=== PATIENT | male | born 1960 | race Caucasian/White ===

== ENCOUNTER 2022-11-12 10:29 | Inpatient (IN) | payer OTHER, SELFPAY ==
[2022-11-12] VITALS (11 sets, daily range): BP systolic 121–148; BP diastolic 60–81; PULSE 61–72; RESP 14–17; TEMP 36.9–37.5; O2SAT 97–100
--- NOTE | 2022-11-12 10:41 | DI.RAD.S_ITS ---
PROCEDURE: XR HIP W PEL IF DONE RT 2V INDICATIONS: fall with hip injury,short/rotated. TECHNIQUE: 2 views of the hip were acquired. COMPARISON: None. FINDINGS: Bones: Impacted subcapital hip fracture. Soft tissues: Partially seen lower lumbar spondylosis. Moderate stool burden. IMPRESSION: Right hip fracture. Dictated by: Marcelino Medina M.D. on 11/12/2022 at 11:23 Approved by: Marcelino Medina M.D. on 11/12/2022 at 11:24
--- NOTE | 2022-11-12 11:25 | ED.FALL ---
HPI - Fall General Chief Complaint: Fall Stated Complaint: fall, R hip short rotated Time Seen by Provider: 11/12/22 10:54 Source: patient Mode of arrival: EMS Limitations: no limitations History of Present Illness HPI Narrative: Patient is a 62-year-old male who is here for evaluation of injuries that he sustained when he states he was at his normal state of health and he slipped on a cement floor landing on his right hip. He is not been ambulatory since then. Did not hit his head. No other injuries from the event. No prior right hip injuries. No interventions prior to arrival. Related Data Home Medications Medication Instructions Recorded Confirmed No Known Home Medications 11/12/22 11/12/22 Review of Systems Musculoskeletal Musculoskeletal: Reports system reviewed and no additional complaints, except as documented Integumentary/Breasts Skin/Breast: Reports system reviewed and no additional complaints, except as documented Neurologic Neurologic: Reports system reviewed and no additional complaints, except as documented Exam Initial Vital Signs Initial Vital Signs: Vital Signs Temperature 98.5 F 11/12/22 10:35 Pulse Rate 61 11/12/22 10:35 Respiratory Rate 16 11/12/22 10:35 Blood Pressure 148/60 H 11/12/22 10:35 Pulse Oximetry 97 11/12/22 10:35 Oxygen Delivery Method Room Air 11/12/22 10:35 Const General: cooperative and No ill appearing HENMT Head: normal to inspection and normocephalic Cardio Pulses: dorsalis pedis present on the right Neuro Sensory Exam: no sensory deficits noted Extrem Other: Discomfort with palpation in the right hemipelvis with a shortened right leg. Course Orders Ordered: ED Orders 11/12/22 10:40 COVID19 -Nasal RAPID Stat 11/12/22 10:41 XR hip w pel if done RT 2V Stat 11/12/22 11:26 Consult to Orthopedic Surgery Stat 11/12/22 11:44 Basic Metabolic Panel Stat Complete Blood Count AUTO DIFF Stat Sodium Chloride (Normal Saline 0.9%) 1,000 mls @ 100 mls/hr IV CONT RIGOBERTO Last Admin: 11/12/22 11:53 Dose: 100 mls/hr Documented By: RONNIE Vital Signs Vital signs: Vital Signs - 8 hr 11/12/22 10:35 11/12/22 10:39 11/12/22 10:40 Temperature 98.5 F Pulse Rate 61 Respiratory Rate 16 Blood Pressure 148/60 H 148/80 H Pulse Oximetry 97 100 Oxygen Delivery Method Room Air 11/12/22 10:40 11/12/22 11:00 11/12/22 11:00 Temperature Pulse Rate 63 72 Respiratory Rate Blood Pressure 123/80 Pulse Oximetry 99 98 Oxygen Delivery Method MDM - Fall Lab Data 11/12/22 11:44 11/12/22 11:44 Labs: Lab Results 11/12/22 11/12/22 11/12/22 Range/Units 10:40 11:44 11:44 WBC 9.9 (4.5-11.0) X10^3/uL RBC 4.24 L (4.5-5.9) X10^6/uL Hgb 12.8 L (13.5-17.5) g/dL Hct 38.2 L (41-53) % MCV 90.0 (80-100) fL MCH 30.3 (26-34) PG MCHC 33.6 (30-36) % RDW 15.0 H (11.6-14.8) % Plt Count 319 (150-400) X10^3/uL Neut % (Auto) 74.9 (50-75) % Lymph % (Auto) 14.7 L (25-40) % [place] % (Auto) 8.7 (3-14) % Eos % (Auto) 0.5 L (2-4) % Baso % (Auto) 1.2 (0-2) % Neut # (Auto) 7500 H (2399-9704) /uL Lymph # (Auto) 1500 (2054-3689) /uL [place] # (Auto) 900 (0-900) /uL Eos # (Auto) 0 (0-450) /uL Baso # (Auto) 100 (0-100) /uL Sodium 133 L (137-145) mmol/L Potassium 4.6 (3.4-5.1) mmol/L Chloride 100 (98-107) mmol/L Carbon Dioxide 27 (22-32) mmol/L BUN 10 (9-20) mg/dL Creatinine 0.68 (0.66-1.25) mg/dL Estimated GFR > 60 (>60) mL/min BUN/Creatinine Ratio 14.7 (6-22) Glucose 96 (80-110) mg/dL Calcium 8.7 (8.4-10.2) mg/dL SARS-CoV-2 (PCR) Negative (Negative) Urine Dip Bedside Urine Glucose Negative Bedside Urine Bilirubin - Negative Bedside Urine Ketone - Negative Urine Specific [place] 1.005 Bedside Urine Occult Blood - Negative Bedside Urine pH 8.0 Bedside Urine Protein - Negative Bedside Urine Urobilinogen - Negative Bedside Urine Nitrite - Negative Bedside Urine Leukocytes - Negative Esterase Imaging Data Extremity x-ray #1: Radiologist's Impression: PROCEDURE:? XR HIP W PEL IF DONE RT 2V ? INDICATIONS:? fall with hip injury,short/rotated. ? TECHNIQUE:? 2 views of the hip were acquired.? ? COMPARISON:? None. ? FINDINGS:? ? Bones:? Impacted subcapital hip fracture. ? Soft tissues:? Partially seen lower lumbar spondylosis.? Moderate stool burden. ? IMPRESSION:? Right hip fracture. MDM Narrative Medical decision making narrative: This was a mechanical fall at an isolated right femoral neck fracture. Discussed the case with Dr. Arzola with Orthopedics who asked with the patient be admitted to the medicine service and he would look at the x-rays and evaluate the patient upon admission. Then discussed the case with Dr. Puga who will admit the patient. I did discuss the findings of the x-ray with the patient. He expressed understanding and agreement with plan. Discharge Plan Departure Patient Disposition: Admitted As Inpatient Clinical Impression: Closed fracture of neck of right femur
[2022-11-12 11:50] LABS: COVID19 -Nasal RAPID Negative (Negative)
[2022-11-12] MEDS: SODIUM CHLORIDE 0.9% 1,000 ML 100 ML IV (11:53)
[2022-11-12 11:56] LABS: Add Manual Diff / Slide Review NO; Basophils Absolute Auto 100 /uL (0-100); Basophils Percent Auto 1.2 % (0-2); Eosinophils Absolute Auto 0 /uL (0-450); Eosinophils Percent Auto 0.5 % (2-4); Hematocrit 38.2 % (41-53); Hemoglobin 12.8 g/dL (13.5-17.5); Lymphocytes Absolute Auto 1500 /uL (1100-4500); Lymphocytes Percent Auto 14.7 % (25-40); Mean Corpuscular HGB Conc 33.6 % (30-36); Mean Corpuscular Hemoglobin 30.3 PG (26-34); Monocytes Absolute Auto 900 /uL (0-900); Monocytes Percent Auto 8.7 % (3-14); Neutrophils Absolute Auto 7500 /uL (1500-7000); Neutrophils Percent Auto 74.9 % (50-75); Platelet Count 319 X10^3/uL (150-400); Red Blood Cell Count 4.24 X10^6/uL (4.5-5.9); White Blood Cell Count 9.9 X10^3/uL (4.5-11.0)
[2022-11-12 12:02] LABS: BUN Creatinine Ratio 14.7 (6-22); Blood Urea Nitrogen 10 mg/dL (9-20); Calcium 8.7 mg/dL (8.4-10.2); Carbon Dioxide 27 mmol/L (22-32); Chloride 100 mmol/L (98-107); Estimated Glomerular Filt Rate > 60 mL/min (>60); Glucose 96 mg/dL (80-110); HEMOLYSIS < 15 (0-50); Potassium 4.6 mmol/L (3.4-5.1); Sodium 133 mmol/L (137-145)
--- NOTE | 2022-11-12 14:27 | PM.HP.1 ---
History of Present Illness History of Present Illness Date Patient Seen: 11/12/22 Time Patient Seen: 14:27 Chief complaint: fall, R hip short rotated Narrative: This is a 62 year old male, former smoker, daily drinker of 4-5 beers and daily marijuana use who presented with constant right hip pain after a fall at home today. Patient denies dizziness, loss of consciousness, palpitations, chest pain prior to fall. He denies recent shortness of breath, leg swelling, abdominal pain, dysuria, constipation or diarrhea. He has not seen a doctor in about 5 years. He thinks he may have slipped on water on his floor which is what led to his fall. He denies prior withdrawal symptoms when he has stopped drinking in the past. In the emergency room, imaging showed a right femoral neck fracture. Orthopedic surgery was contacted via the emergency room, admitted to medicine for continued management. Laboratory evaluation was only notable for a sodium of 133, and was otherwise unremarkable. Patient History Medical History (Updated 11/12/22 @ 14:27 by Carlos Manuel Puga DO) No pertinent past medical history Surgical History (Updated 11/12/22 @ 14:27 by Carlos Manuel Puga DO) H/O knee surgery Family & Social History Family History Mother Cancer Father Cancer Safety & Behavioral: Feels Safe in Current Yes Environment Been Physically Hurt or No Threatened By a Person Tobacco & Substance use: Tobacco: former (60 + pack year hx), stopped about 12 years ago EtOH: daily EtOH, 4-5 drinks per day, no prior history of withdrawals Marijuana: daily Illicit substances: Denies Meds Home Medications and Allergies Home Medications Medication Instructions Recorded Confirmed Type No Known Home Medications 11/12/22 11/12/22 History Allergies Allergy/AdvReac Type Severity Reaction Status Date / Time No Known Drug Allergies Allergy Verified 11/12/22 14:53 Review of Systems Review of Systems Narrative: All other systems reviewed with the patient and are negative unless otherwise stated. Exam Vital Signs (past 8 hours): - 11/12/22 10:35 11/12/22 10:39 11/12/22 10:40 Temperature 98.5 F Pulse Rate 61 Respiratory Rate 16 Blood Pressure 148/60 H 148/80 H Pulse Oximetry 97 100 Oxygen Delivery Method Room Air Oxygen Flow Rate 11/12/22 10:40 11/12/22 11:00 11/12/22 11:00 Temperature Pulse Rate 63 72 Respiratory Rate Blood Pressure 123/80 Pulse Oximetry 99 98 Oxygen Delivery Method Oxygen Flow Rate 11/12/22 13:50 11/12/22 13:50 11/12/22 14:10 Temperature 99.0 F 99.0 F Pulse Rate 70 70 Respiratory Rate 14 Blood Pressure 121/79 121/79 Pulse Oximetry 99 99 Oxygen Delivery Method Oxygen Flow Rate 0 0 Oxygen Delivery Method Room Air Oxygen Flow Rate 0 Narrative Exam Narrative: General:? Patient is mildly thin appearing, appears stated age, in no distress at this time. HEENT:? Normocephalic, atraumatic, extraocular muscles intact, oral pharynx is clear and mucous membranes are moist. Neck: supple and symmetric, trachea is midline, no cervical adenopathy. Chest:?Slightly increased AP diameter and normal contour without kyphoscoliosis, no tachypnea, equal chest rise bilaterally. Lungs:? CTA b/l no wheezing rhonchi or rales. Cardio:?RRR no m/r/g. Abdomen: S NT ND. Musculoskeletal:?Right leg shortened, externally rotated. Extremities: No edema or joint effusions. No cyanosis or clubbing. Skin:? Pale,? Warm to touch,dry and intact without rashes, ulcerations or petechiae.? Neuro:? Alert and orientated x3,? sensation to touch intact in all extremities, no gross deficits noted of cranial nerves. Psych:? Patient has a well-kept appearance, appropriate affect, mental status attitude thought context and judgment are appropriate for age. Objective Labs 11/12/22 11:44 11/12/22 11:44 Labs: Laboratory Results - last 24 hr 11/12/22 11/12/22 11/12/22 10:40 11:44 11:44 WBC 9.9 RBC 4.24 L Hgb 12.8 L Hct 38.2 L MCV 90.0 MCH 30.3 MCHC 33.6 RDW 15.0 H Plt Count 319 Neut % (Auto) 74.9 Lymph % (Auto) 14.7 L [place] % (Auto) 8.7 Eos % (Auto) 0.5 L Baso % (Auto) 1.2 Neut # (Auto) 7500 H Lymph # (Auto) 1500 [place] # (Auto) 900 Eos # (Auto) 0 Baso # (Auto) 100 Sodium 133 L Potassium 4.6 Chloride 100 Carbon Dioxide 27 BUN 10 Creatinine 0.68 Estimated GFR > 60 BUN/Creatinine Ratio 14.7 Glucose 96 Calcium 8.7 SARS-CoV-2 (PCR) Negative Assessment & Plan Assessment & Plan narrative: 1. Right femoral neck fracture, pathologic, acute, present on admission - Discussed with orthopedics, OR planned for 11/14 AM at this time. NPO ordered for midnight on 11/14. - pain control ordered - Will check EKG prior to OR given age, smoking history. - coagulation studies ordered. 2. Polysubstance use - daily marijuana user, former tobacco use, and daily EtOH use - monitor for signs of withdrawal, but no concerning history of high risk features including admission, seizure, or intubations. CIWA precautions, nurse to contact provider if benzodiazepines are needed. Code: Full, surroagate decision maker he thinks would be his sister, but lives [place] the country and declines emergency contact at this time. I have utilized all available immediate resources to obtain, update, or review the patient's current medications. Discussed care with ER provider, orthopedics, bedside nurse, and patient. COVID-19 COVID-19 status: Negative Time Spent With Patient Critical Care time: I spent a total of [] minutes of critical care time on this patient's care today; this time is exclusive of procedural time. Quality MIPS - Admit I confirm the patient?s Advance Care Plan is present, Code status is documented, Surrogate decision maker is in patient?s record [If Yes, STOP here]: Yes
[2022-11-12] MEDS: SODIUM CHLORIDE 0.9% 1,000 ML 75 ML IV (14:45)
[2022-11-12] MEDS: KETOROLAC 10 MG TABLET PO (15:46)
[2022-11-12] MEDS: ACETAMINOPHEN 325 MG TABLET 650 MG PO (15:46)
[2022-11-12] MEDS: OXYCODONE IR 5 MG TABLET PO (18:40)
[2022-11-12] MEDS: HYDROMORPHONE 0.5 MG INJ IV (20:46)
[2022-11-13] VITALS (12 sets, daily range): BP systolic 109–133; BP diastolic 69–87; PULSE 57–68; RESP 16–18; TEMP 36.3–37.2; O2SAT 96–99
[2022-11-13 05:47] LABS: PTT Partial Thromboplastin Tim 30 SECONDS (26-36)
[2022-11-13 05:59] LABS: Add Manual Diff / Slide Review NO; Basophils Absolute Auto 100 /uL (0-100); Basophils Percent Auto 1.6 % (0-2); Eosinophils Absolute Auto 200 /uL (0-450); Eosinophils Percent Auto 1.9 % (2-4); Hematocrit 39.1 % (41-53); Lymphocytes Absolute Auto 2000 /uL (1100-4500); Lymphocytes Percent Auto 24.9 % (25-40); Mean Corpuscular HGB Conc 33.2 % (30-36); Mean Corpuscular Hemoglobin 30.4 PG (26-34); Mean Corpuscular Volume 91.5 fL (80-100); Monocytes Absolute Auto 1100 /uL (0-900); Monocytes Percent Auto 13.7 % (3-14); Neutrophils Absolute Auto 4700 /uL (1500-7000); Neutrophils Percent Auto 57.9 % (50-75); Platelet Count 287 X10^3/uL (150-400); Red Blood Cell Count 4.27 X10^6/uL (4.5-5.9); Red Cell Distribution Width 15.2 % (11.6-14.8); White Blood Cell Count 8.1 X10^3/uL (4.5-11.0)
[2022-11-13 06:04] LABS: BUN Creatinine Ratio 21.9 (6-22); Blood Urea Nitrogen 16 mg/dL (9-20); Carbon Dioxide 23 mmol/L (22-32); Chloride 100 mmol/L (98-107); Estimated Glomerular Filt Rate > 60 mL/min (>60); Glucose 65 mg/dL (80-110); HEMOLYSIS < 15 (0-50); Magnesium 2.1 mg/dL (1.6-2.3); Potassium 4.1 mmol/L (3.4-5.1); Sodium 130 mmol/L (137-145)
[2022-11-13] MEDS: OXYCODONE IR 5 MG TABLET PO ×4 (06:23→18:11)
[2022-11-13] MEDS: ACETAMINOPHEN 325 MG TABLET 650 MG PO ×2 (09:01→18:12)
--- NOTE | 2022-11-13 09:25 | P.PN_ITS ---
Subjective Subjective Interval history: Patient's pain adequately controlled. Awaiting surgery tomorrow. Na dipped to 130 today with IVF so this was held. Exam Vital Signs (past 8 hours): - 11/13/22 04:00 11/13/22 05:00 11/13/22 08:15 Temperature 98.2 F 98.5 F Pulse Rate 63 65 Respiratory Rate 16 16 Blood Pressure 110/69 125/73 Pulse Oximetry 97 97 98 Oxygen Delivery Method Room Air Oxygen Flow Rate 0 11/13/22 09:00 Temperature Pulse Rate Respiratory Rate Blood Pressure Pulse Oximetry 97 Oxygen Delivery Method Room Air Oxygen Flow Rate 0 Oxygen Delivery Method Room Air Oxygen Flow Rate 0 Narrative Exam Narrative: General:? Patient is thin appearing, appears stated age, in no distress at this time. HEENT:? Normocephalic, atraumatic, extraocular muscles intact, oral pharynx is clear and mucous membranes are moist. Neck: supple and symmetric, trachea is midline, no cervical adenopathy. Chest:?Slightly increased AP diameter and normal contour without kyphoscoliosis, no tachypnea, equal chest rise bilaterally. Lungs:? CTA b/l no wheezing rhonchi or rales. Cardio:?RRR no m/r/g. Abdomen: S NT ND. Musculoskeletal:?Right leg shortened, externally rotated. Extremities: No edema or joint effusions. No cyanosis or clubbing. Skin:? Pale,? Warm to touch,dry and intact without rashes, ulcerations or petechiae.? Neuro:? Alert and orientated x3,? sensation to touch intact in all extremities, no gross deficits noted of cranial nerves. Psych:? Patient has a well-kept appearance, appropriate affect, mental status attitude thought context and judgment are appropriate for age. Objective Labs 11/13/22 04:25 11/13/22 04:25 Labs: Laboratory Results - last 24 hr 11/12/22 11/12/22 11/12/22 10:40 11:44 11:44 WBC 9.9 RBC 4.24 L Hgb 12.8 L Hct 38.2 L MCV 90.0 MCH 30.3 MCHC 33.6 RDW 15.0 H Plt Count 319 Neut % (Auto) 74.9 Lymph % (Auto) 14.7 L [place] % (Auto) 8.7 Eos % (Auto) 0.5 L Baso % (Auto) 1.2 Neut # (Auto) 7500 H Lymph # (Auto) 1500 [place] # (Auto) 900 Eos # (Auto) 0 Baso # (Auto) 100 PT INR APTT Sodium 133 L Potassium 4.6 Chloride 100 Carbon Dioxide 27 BUN 10 Creatinine 0.68 Estimated GFR > 60 BUN/Creatinine Ratio 14.7 Glucose 96 Calcium 8.7 Magnesium SARS-CoV-2 (PCR) Negative 11/13/22 11/13/22 11/13/22 04:25 04:25 04:25 WBC 8.1 RBC 4.27 L Hgb 13.0 L Hct 39.1 L MCV 91.5 MCH 30.4 MCHC 33.2 RDW 15.2 H Plt Count 287 Neut % (Auto) 57.9 Lymph % (Auto) 24.9 L [place] % (Auto) 13.7 Eos % (Auto) 1.9 L Baso % (Auto) 1.6 Neut # (Auto) 4700 Lymph # (Auto) 2000 [place] # (Auto) 1100 H Eos # (Auto) 200 Baso # (Auto) 100 PT 11.0 INR 1.0 APTT 30 Sodium 130 L Potassium 4.1 Chloride 100 Carbon Dioxide 23 BUN 16 Creatinine 0.73 Estimated GFR > 60 BUN/Creatinine Ratio 21.9 Glucose 65 L Calcium 8.0 L Magnesium 2.1 SARS-CoV-2 (PCR) PFS Medical History (Updated 11/12/22 @ 14:27 by Carlos Manuel Puga DO) No pertinent past medical history Surgical History (Updated 11/12/22 @ 14:27 by Carlos Manuel Puga DO) H/O knee surgery Family History Mother Cancer Father Cancer Social History household members: none Smoking Status: Former smoker alcohol intake: current Assessment & Plan Assessment & Plan narrative: 1. Right femoral neck fracture, pathologic, acute, present on admission - Discussed with orthopedics, OR planned for 11/14 AM at this time. NPO ordered for midnight on 11/14. - pain control ordered - Will check EKG prior to OR given age, smoking history. - coagulation studies ordered. 2. Polysubstance use - daily marijuana user, former tobacco use, and daily EtOH use - monitor for signs of withdrawal, but no concerning history of high risk features including admission, seizure, or intubations. CIWA precautions, nurse to contact provider if benzodiazepines are needed. Code: Full, surroagate decision maker he thinks would be his sister, but lives across the country and declines emergency contact at this time. Dispo: Awaiting hip surgery on 11/14 then depending on PT eval home vs SNF. COVID-19 COVID-19 status: Negative
--- NOTE | 2022-11-13 14:36 | CM.DANOTE ---
Addendum entered by SHANELLE Velasquez 11/14/22 14:16: ADD: L[employer]I Him Director is Gini Willams P [phone] (voice msg says extension [phone]). 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 Left patient's Claim # and requested CB to discuss DC planning needs LISS Original Note: Initial DCP Assessment Note Pt is a 62 yo male, resident of [facility], arrives after a fall at work w/subsequent hip fx (seen on imaging). Awaiting Ortho consult Surgery expected over the next 24-48 hrs PCP: None Payer: L+I (no other insurance per patient) Reviewed chart, met w/patient to introduce self and role. Patient lives alone on [facility], works approx. 25 hrs weekly at [employer]. Patient expects to return home upon discharge; patient unsure who he will enlist to help him recover. Patient denies the need for SNF Patient has no PCP and no health insurance other than coverage from this L+I claim. Patient unsure how he will get back to [place]. Strongly encouraged patient to consider who he could rely on for transportation and assist while he recovers from surgery, patient agreed he would consider Plan: Discharge likely home. Transport TBD. Care and outpatient supports TBD. Patient has no PCP and lives on [facility]--> no HH available to patient. SHANELLE Horne Discharge Planning/Care Management CM Discharge Assessment Start: 11/13/22 14:19 Freq: Status: Active Protocol: Document 11/13/22 14:19 LISS (Rec: 11/13/22 14:36 LISS [id number]) Discharge Planning Assessment Assigned Printing Manager SHANELLE Schaefer DPOA/Assigned Designee Name None Advance Directives? No History Provided By Patient Prior Living Arrangements RV Household Members none Independent with ADL's Yes Is patient alert and oriented? Yes Comment TBD. Hip repair tomorrow, therapy evals after. See narrative for detail Discharge Plan Home Referrals Initiated None needed Whiteboard Updated in Patient Room with Yes name and ext. # of Printing Manager
[2022-11-13] MEDS: HYDROMORPHONE 0.5 MG INJ IV ×2 (19:58→22:10)
[2022-11-14] VITALS (19 sets, daily range): BP systolic 122–153; BP diastolic 76–91; PULSE 59–98; RESP 10–19; TEMP 36.2–38.3; O2SAT 97–100
[2022-11-14] MEDS: OXYCODONE IR 5 MG TABLET PO ×2 (00:41→10:50)
[2022-11-14] MEDS: HYDROMORPHONE 0.5 MG INJ IV (05:35)
--- NOTE | 2022-11-14 06:02 | DI.RAD.S_ITS ---
PROCEDURE: XR PELVIS 1-2V INDICATIONS: TOTAL RT INNER OP TECHNIQUE: Intra-operative view of the pelvis and hip acquired. COMPARISON: None. FINDINGS: Bones: Intraoperative devices prior to placement of arthroplasty prostheses are in expected positions. No fractures or suspicious bony lesions. Soft tissues: Overlying surgical retractors are present, along with other intraoperative changes. IMPRESSION: Intraoperative devices prior to placement of arthroplasty prostheses are in expected positions. Dictated by: Elieser Gates M.D. on 11/14/2022 at 12:14 Approved by: Elieser Gates M.D. on 11/14/2022 at 12:15
[2022-11-14] MEDS: DEXTROSE 50 % IN WATER 25 GM/50 ML SYRINGE IV (06:06)
[2022-11-14 06:08] LABS: BUN Creatinine Ratio 15.4 (6-22); Blood Urea Nitrogen 10 mg/dL (9-20); Calcium 8.1 mg/dL (8.4-10.2); Carbon Dioxide 26 mmol/L (22-32); Chloride 98 mmol/L (98-107); Estimated Glomerular Filt Rate > 60 mL/min (>60); Glucose 78 mg/dL (80-110); HEMOLYSIS < 15 (0-50); Magnesium 1.9 mg/dL (1.6-2.3); Sodium 130 mmol/L (137-145)
[2022-11-14 06:11] LABS: Add Manual Diff / Slide Review NO; Basophils Absolute Auto 100 /uL (0-100); Eosinophils Absolute Auto 300 /uL (0-450); Eosinophils Percent Auto 3.3 % (2-4); Hematocrit 37.7 % (41-53); Hemoglobin 12.8 g/dL (13.5-17.5); Lymphocytes Absolute Auto 2000 /uL (1100-4500); Lymphocytes Percent Auto 22.8 % (25-40); Mean Corpuscular HGB Conc 33.9 % (30-36); Mean Corpuscular Hemoglobin 30.2 PG (26-34); Mean Corpuscular Volume 89.1 fL (80-100); Monocytes Absolute Auto 1200 /uL (0-900); Neutrophils Absolute Auto 5100 /uL (1500-7000); Neutrophils Percent Auto 58.9 % (50-75); Platelet Count 286 X10^3/uL (150-400); Red Blood Cell Count 4.24 X10^6/uL (4.5-5.9); Red Cell Distribution Width 14.9 % (11.6-14.8); White Blood Cell Count 8.6 X10^3/uL (4.5-11.0)
[2022-11-14] MEDS: ACETAMINOPHEN 325 MG TABLET 975 MG PO (06:25)
--- NOTE | 2022-11-14 06:43 | PC.NURSE ---
Nightshift Pt left floor at 0641 to go to OR.
--- NOTE | 2022-11-14 07:12 | PM.PN.1 ---
Subjective Subjective Interval history: Patient back from hip surgery this morning and reports no pain. Exam Vital Signs (past 8 hours): - 11/14/22 01:00 11/14/22 05:00 11/14/22 00:00 Temperature 98.2 F Pulse Rate 62 Respiratory Rate 17 Blood Pressure 135/91 H Pulse Oximetry 97 97 98 Oxygen Delivery Method Room Air Room Air Oxygen Flow Rate 0 11/14/22 04:00 11/14/22 06:57 Temperature 98.0 F 97.9 F Pulse Rate 59 L 70 Respiratory Rate 17 16 Blood Pressure 132/77 132/76 Pulse Oximetry 98 98 Oxygen Delivery Method Room Air Oxygen Flow Rate 0 Oxygen Delivery Method Room Air Oxygen Flow Rate 0 Narrative Exam Narrative: General:? Patient is thin appearing, appears stated age, in no distress at this time. HEENT:? Normocephalic, atraumatic, extraocular muscles intact, oral pharynx is clear and mucous membranes are moist. Neck: supple and symmetric, trachea is midline, no cervical adenopathy. Chest:?Slightly increased AP diameter and normal contour without kyphoscoliosis, no tachypnea, equal chest rise bilaterally. Lungs:? CTA b/l no wheezing rhonchi or rales. Cardio:?RRR no m/r/g. Abdomen: S NT ND. Musculoskeletal:?Right leg with postop dressing on lateral hip. Extremities: No edema or joint effusions. No cyanosis or clubbing. Skin:? Pale,? Warm to touch,dry and intact without rashes, ulcerations or petechiae.? Neuro:? Alert and orientated x3,? sensation to touch intact in all extremities, no gross deficits noted of cranial nerves. Psych:? Patient has a well-kept appearance, appropriate affect, mental status attitude thought context and judgment are appropriate for age. Objective Labs 11/14/22 04:55 11/14/22 04:55 Labs: Laboratory Results - last 24 hr 11/14/22 11/14/22 04:55 04:55 WBC 8.6 RBC 4.24 L Hgb 12.8 L Hct 37.7 L MCV 89.1 MCH 30.2 MCHC 33.9 RDW 14.9 H Plt Count 286 Neut % (Auto) 58.9 Lymph % (Auto) 22.8 L [place] % (Auto) 14.0 Eos % (Auto) 3.3 Baso % (Auto) 1.0 Neut # (Auto) 5100 Lymph # (Auto) 2000 [place] # (Auto) 1200 H Eos # (Auto) 300 Baso # (Auto) 100 Sodium 130 L Potassium 4.0 Chloride 98 Carbon Dioxide 26 BUN 10 Creatinine 0.65 L Estimated GFR > 60 BUN/Creatinine Ratio 15.4 Glucose 78 L Calcium 8.1 L Magnesium 1.9 PFSH Medical History No pertinent past medical history Surgical History H/O knee surgery Family History Mother Cancer Father Cancer Social History household members: none Smoking Status: Former smoker alcohol intake: current Assessment & Plan Assessment & Plan narrative: 1. Right femoral neck fracture, pathologic, acute, present on admission - underwent fracture repair with ortho on 11/14 - pain control PRN - doing well post-op - PT eval ordered 2. Polysubstance use - daily marijuana user, former tobacco use, and daily EtOH use - monitor for signs of withdrawal, but no concerning history of high risk features including admission, seizure, or intubations. CIWA precautions, nurse to contact provider if benzodiazepines are needed. Code: Full, surroagate decision maker he thinks would be his sister, but lives [place] the country and declines emergency contact at this time. Dispo: Awaiting PT eval for home vs SNF. COVID-19 COVID-19 status: Negative
[2022-11-14] MEDS: LACTATED RINGERS 1,000 ML 42 ML IV (07:15)
--- NOTE | 2022-11-14 07:31 | PM.HP.1 ---
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 This occurred 2 days ago. He was taken to [facility] were x-rays were obtained demonstrating a right femoral neck fracture. He is otherwise healthy has no heart or lung issues. He takes no medications at home. He does smoke marijuana and drink 4 beers a day. He has not had any withdrawal symptoms since he has been in the hospital. He lives by himself in a trailer. He states that he has 3 steps. He denies any distal numbness or tingling. No other complaints this time. Patient History Medical History No pertinent past medical history Surgical History H/O knee surgery Family & Social History Family History Mother Cancer Father Cancer Social History: household members none Prior Living Arrangements RV Safety & Behavioral: Feels Safe in Current Yes Environment Been Physically Hurt or No Threatened By a Person Tobacco & Substance use: Tobacco type cannabis/marijuana Smoking Status Former smoker Smoking packs per day 0 alcohol intake current alcohol intake frequency 3 or more drinks per day Substance Use Type marijuana Meds Home Medications and Allergies Home Medications Medication Instructions Recorded Confirmed Type No Known Home Medications 11/12/22 11/12/22 History Allergies Allergy/AdvReac Type Severity Reaction Status Date / Time No Known Drug Allergies Allergy Verified 11/12/22 14:53 Review of Systems Review of Systems ROS: Yes All systems reviewed with the patient and are negative except as otherwise documented Exam Vital Signs (past 8 hours): - 11/14/22 01:00 11/14/22 05:00 11/14/22 00:00 Temperature 98.2 F Pulse Rate 62 Respiratory Rate 17 Blood Pressure 135/91 H Pulse Oximetry 97 97 98 Oxygen Delivery Method Room Air Room Air Oxygen Flow Rate 0 11/14/22 04:00 11/14/22 06:57 Temperature 98.0 F 97.9 F Pulse Rate 59 L 70 Respiratory Rate 17 16 Blood Pressure 132/77 132/76 Pulse Oximetry 98 98 Oxygen Delivery Method Room Air Oxygen Flow Rate 0 Oxygen Delivery Method Room Air Oxygen Flow Rate 0 Narrative Exam Narrative: HEENT: Head atraumatic eyes anicteric moist mucous membranes Cardiovascular: Palpable peripheral pulses extremities are warm and well perfused Respiratory: Breathing comfortably on room air Psychiatric: Appropriate mood and affect Neuro: No acute deficits Musculoskeletal: Exam of right lower extremity demonstrates leg held in slight external rotation. No obvious deformity. Sensation intact from L2 through S2. 2+ dorsalis pedis pulse and brisk capillary refill less than 2 seconds. Objective Labs 11/14/22 04:55 11/14/22 04:55 Labs: Laboratory Results - last 24 hr 11/14/22 11/14/22 04:55 04:55 WBC 8.6 RBC 4.24 L Hgb 12.8 L Hct 37.7 L MCV 89.1 MCH 30.2 MCHC 33.9 RDW 14.9 H Plt Count 286 Neut % (Auto) 58.9 Lymph % (Auto) 22.8 L Winn % (Auto) 14.0 Eos % (Auto) 3.3 Baso % (Auto) 1.0 Neut # (Auto) 5100 Lymph # (Auto) 2000 Winn # (Auto) 1200 H Eos # (Auto) 300 Baso # (Auto) 100 Sodium 130 L Potassium 4.0 Chloride 98 Carbon Dioxide 26 BUN 10 Creatinine 0.65 L Estimated GFR > 60 BUN/Creatinine Ratio 15.4 Glucose 78 L Calcium 8.1 L Magnesium 1.9 Assessment & Plan Assessment & Plan narrative: Assessment: 62-year-old male with right femoral neck fracture Plan. We discussed exam and imaging and pathophysiology of his femoral neck fracture. Treatment options include fixation, hemiarthroplasty or total hip arthroplasty. Given his young age at 62 years old and his good quality of bone as well as having no medical history an otherwise healthy, a total hip arthroplasty was indicated. Risks and benefits of surgery were discussed again including the risk of infection, damage to internal structures, bleeding, nerve injury, instability, need for revision surgery, blood clots, anesthesia and . No guarantees were made regarding outcomes. Patient expressed understanding and accepted these risks and wished to go forward with surgery and consent was signed. He agreed with these risks and wished to go forward with surgery. His right lower extremity was marked with my initials. Time Spent With Patient Critical Care time: I spent a total of [] minutes of critical care time on this patient's care today; this time is exclusive of procedural time.
--- NOTE | 2022-11-14 08:00 | DI.RAD.S_ITS ---
PROCEDURE: XR PELVIS 1-2V INDICATIONS: post op right hip fx repair TECHNIQUE: 2 views of the lower pelvis acquired. COMPARISON: [facility], , XR PELVIS 1-2V, 11/14/2022, 9:18. FINDINGS: Bones: Patient is status post right total hip arthroplasty, with hardware components in expected positions. The hip joint appears congruent. The visualized bony structures appear intact. Soft tissues: Overlying postoperative changes are noted. No suspicious soft tissue densities. IMPRESSION: Status post right total hip arthroplasty without evidence for acute hardware complication. Dictated by: Hal Richards M.D. on 11/14/2022 at 11:24 Approved by: Hal Richards M.D. on 11/14/2022 at 11:25
[2022-11-14] MEDS: CEFAZOLIN 2 GM/100 ML PREMIX 100 ML IV ×3 (08:15→23:58)
[2022-11-14] MEDS: TRANEXAMIC ACID 1,000 MG VIAL 2000 MG INJ ×2 (08:26→10:02)
--- NOTE | 2022-11-14 08:37 | SUR.OPER ---
Lateral on padded OR bed. Gel axillary roll. Arms secured on padded armboard with pillow supporting top arm. Padded hip positioner braces x4 - anterior and posterior chest and pelvis. Additional gel pad used anterior pelvis. Gel pad under bottom leg from knee to foot and secured with tape over sheet. Pt positioned per direction and supervision of Dr Arzola.
[2022-11-14] MEDS: BUPIVACAINE 0.25% (PF) 60 ML, EPINEPHrine 0.3 MG INJ (08:45)
[2022-11-14] MEDS: BUPIVACAINE LIPOSOME 266 MG/20 ML VIAL INJ (08:45)
--- NOTE | 2022-11-14 10:16 | PM.OP.1 ---
Operative Date/Time/Diagnoses Date of procedure: 11/14/22 Time of procedure: 10:16 Pre-op diagnosis: Right femoral neck fracture Post-op diagnosis: same Procedure & Clinicians Procedure: Right total hip arthroplasty Same procedure as scheduled: Yes Indications: This is a healthy 62-year-old male who sustained ground level fall which resulted in a right femoral neck fracture. Due to his good bone quality, overall healthy status and pre-existing level of ambulation, he was indicated for a total hip arthroplasty. Surgeon: Girish Arzola Columnist/Commentator: William Lopez Anesthesia Type: General Operative Notes Findings: Right femoral neck fracture as seen on preoperative imaging and under direct visualization Closure Type: primary Specimen(s): none sent Prosthetic devices, grafts, tissues, transplants, or devices: [employer] Size 13 femoral component 32 mm, -3 femoral head Size 50 three-hole hemispherical shell 32 mm acetabular liner Estimated Blood Loss (mL): 50 Blood products transfused: none Procedure in detail: Patient was identified in the preoperative holding area. The correct right hip was marked with my initials. Risks were again discussed. The patient was then brought to the operating room. A surgical pause was done confirming the correct site of surgery. The patient was given perioperative IV antibiotics and TXA followed by induction of general anesthesia. Patient was placed in the lateral decubitus position with hip woodworking belt sander positioners. An axillary roll was placed. The right hip and lower extremity were then prepped and draped in a standard sterile fashion. Posterolateral skin incision was made centered over the greater trochanter. Dissection was carried down to the fascia enzo and a Galeano was used to define the plane of tissue. The fascia was then incised in line with the skin incision over the greater trochanter. A Charnley retractor was placed. The trochanter bursa was then resected. The leg was internally rotated and the capsule and short external rotators were put on tension. They were then released in line with the piriformis tendon as a single sleeve in an L-shaped fashion and this was tagged with a #5 Ethibond suture for later repair. The upper part of the quadratus femoris insertion on the femur was released. The hip was then dislocated. With the thigh parallel to the ground and the leg perpendicular to the ground at 90?, a femoral neck cut was done and then the femoral head was removed from the acetabulum. A Leyva retractor was placed under the neck, and a narrow Cobra was placed into the lesser trochanter. The cookie cutter and canal Finder were then used followed by the lateralizer. Broaching was commenced. Once a solid fit was established, we turned our attention to the acetabulum. Retractors were placed anteriorly and posteriorly. Ligamentum flavum was removed as well as the labrum. Reaming was commenced using the transverse acetabular ligament anterior and posterior wall as guides. We reamed up sequentially to a 48 and trialed acetabular liner. This had good fit and a 50 final implant was impacted. Before screws were placed, we placed our trials and took a flat x-ray. We then placed 2 screws in the posterior superior quadrant. The liner was then placed. We then turned our attention back to the femur. Final implant was impacted. Trialing was then done and the hip was felt to be stable at 90? of flexion and up to 70? of internal rotation. T Leg lengths were equal based on tibial tubercle palpation. The wounds were irrigated. Capsule was repaired through 2 drill holes in the greater trochanter. Fascia was closed with #2 and then the subcutaneous tissue was closed with Vicryl followed by skin danielle and sterile dressings. Patient tolerated the procedure well without complications. Assisting participation: This operation could not have been safely performed (without compromising the technical results or length of the procedure) without the assistance of a skilled surgical scrub tech. The surgical scrub tech was medically necessary for proper positioning, retraction and handlingof instruments, proper exposure, and manipulation of tissue. Complications: none Post-operative Condition: stable Disposition: PACU Plan for aftercare: Postop instructions: Patient may weightbear as tolerated on postoperative day 1. Hip precautions to remain in place. No flexion adduction and internal rotation. Patient may shower over the dressing. If water gets underneath the dressing, please remove the dressing completely and ensure that the incision is completely dry. Otherwise, the dressing will come off on at the 1st postoperative visit in 2 weeks. I recommend aspirin, 81 mg b.i.d. for 4 weeks unless they are already on an anticoagulant or aspirin is not tolerated, if this is the case then Lovenox 40 mg subcutaneous for 4 weeks can be used for DVT prophylaxis.
[2022-11-14] MEDS: HYDROMORPHONE 2 MG INJ IV (10:46)
[2022-11-14] MEDS: hydrOXYzine pamoate 25 MG CAPSULE PO (10:50)
--- NOTE | 2022-11-14 11:13 | SUR.PHASEI ---
received to PACu after general anesthesia. Airway patent, self maintained. Report received from Roxana Jacob and Dr Capellan.
--- NOTE | 2022-11-14 11:25 | SUR.PHASEI ---
Pt transferred to room 223. Received in room by CLINTON Conti.
--- NOTE | 2022-11-14 15:44 | PT.IIE ---
Current Diagnoses Pathological fracture, right femur, initial encounter for fracture (11/12/22) Presence of unspecified artificial hip joint (11/12/22) Surgery Performed Operation Date: 11/14/22 07:45 Actual Procedures p Total Hip Arthroplasty(Right) - Girish Arzola MD Surgical History (Last Reviewed 11/14/22 @ 07:33 by Girish Arzola MD) H/O knee surgery Medical History (Last Reviewed 11/14/22 @ 07:33 by Girish Arzola MD) No pertinent past medical history Physical Therapy Inpatient Evaluation/Re-Eval M1 PT/OT-IP Prior Functional Status Start: 11/14/22 15:05 Freq: NEEDED Status: Active Protocol: Document 11/14/22 15:44 DLM (Rec: 11/14/22 16:01 DL [id number]) Medical Review Prior Functional Status Medical History Reviewed Yes Diet/Fluid Consistency Regular Communication WNL, glasses Mobility and Gait Independent without device, rides bike Activities of Daily Living and IADL's Independent, does not use shower nor toilet in his RV. He uses a shower that is set up outside. He uses the toilet in the shop area. 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 3 steep steps to enter with rail Home Environment Standard Height Toilet,Walk in Shower Additional Social History Comment He may be able to stay in the shop instead of his trailer, he is talking to the process owner. The shop has a couch and bathroom to use. M2 PT-IP Current Condition Start: 11/14/22 15:05 Freq: NEEDED Status: Active Protocol: Document 11/14/22 15:44 DLM (Rec: 11/14/22 16:01 DL [id number]) Physical Therapy Current Condition Current Condition Evaluation Date 11/14/22 Treatment Diagnosis Right LISSA s/p fx, posterior approach, impaired gait/ mobility Onset Date 11/12/22 M3 PT-IP Subjective Start: 11/14/22 15:05 Freq: NEEDED Status: Active Protocol: Document 11/14/22 15:44 DLM (Rec: 11/14/22 16:01 DL [id number]) Subjective Physical Therapy Visit Type Type Initial Evaluation Visit Start Time 15:10 Visit Stop Time 15:44 Total Visit Minutes 34 Number of TRAFFIC ENUMERATOR Visits 0 Physical Therapy Visit Comments Patient Comments He reports he has a [facility] He has no DME at this time. He is happy to be out of bed today. Patient Goals Discharge home Therapy Pain Assessment Pain When Pain Assessed During Mobility Pain Present Pain Present Pain Reported Location R hip Intensity 2 Scale Used Numeric (0 - 10) Description Tender,With Movement Pain Behaviors Guarding M4 PT-IP Mobility and Gait Start: 11/14/22 15:05 Freq: NEEDED Status: Active Protocol: Document 11/14/22 15:44 DLM (Rec: 11/14/22 16:01 [facility] [id number]) PT-Bed Mobility Assessment Supine to Sit Supine to Sit Standby Assistance Scooting Scooting to Edge of Bed Independent Scooting Up and Down in Bed Independent PT-Transfer Assessment Sit to and From Stand Sit to and from Stand Standby Assistance,Use of Upper Extremities Equipment Transfer Assistive Device Gait Belt,Front Wheeled Walker Transfers Transfer Destination Chair Transfer Technique Stand Step Pivot Transfer Ability Level of Assist Standby Assistance,Use of Upper Extremities Comments Mobility Comments He is moving slowly but is being cautious. He is able to use his UE's to assist with mobility. Got out of the left side of the bed today per pt preference. Pt up to the recliner with call light close and instructions to have staff assist for mobility Gait Assessment Gait Gait Assistance Required: Standby Assistance Distance (Feet) 10 Able to Maintain Weight Bearing Status Yes During Gait Assistive Devices Assistive Device Gait Belt,Front Wheeled Walker Gait Deviations General Gait Pattern Antalgic Factors Limiting Gait Function Factors Limiting Gait Function Decreased Activity Tolerance, Decreased Strength,Limited Range of Motion,Pain Comments Gait Comments he is ambulating slow but shows safe use of the FWW. Stair Climbing Assessment Comments Stair Climbing Comments did not perform this visit PT-Balance Assessment Sitting Balance and Reactions Static Sitting Balance Ability Normal Dynamic Sitting Balance Ability Normal Standing Balance and Reactions Static Standing Balance Ability Good Dynamic Standing Balance Ability Good Device Used FWW M5 PT-IP Objective Assessments Start: 11/14/22 15:05 Freq: NEEDED Status: Active Protocol: Document 11/14/22 15:44 DLM (Rec: 11/14/22 16:01 [facility] [id number]) Orientation Orientation/Cognition Level of Alertness Alert Orientation Name,Age,Birthday,Month,Date, Year,Day of Week,Place, Situation Language Function Ability No Deficits Noted Safety Awareness Understands Safety Issues Memory Description No Deficits Noted Comments cooperative and pleasant Gross Range of Motion Upper Extremity ROM Assessment Within Functional Limits Lower Extremity ROM Assessment Right Impaired Impairments posterior hip precautions Strength Upper Extremity Strength Assessment Within Functional Limits Lower Extremity Strength Assessment Right Impaired Hip flexion 3+/5 Knee ext 4/5 Ankle DF 4+/5 Coordination Assessment Gross Coordination Gross Coordination WNL Sensation Assessment Sensation Gross Sensation WNL Comments Sensation Comments he has thick skin on bottom of hisf feet which he reports is due to psoriasis Muscle Tone Muscle Tone WNL Yes M6 PT-IP Treatment Start: 11/14/22 15:05 Freq: NEEDED Status: Active Protocol: Document 11/14/22 15:44 DLM (Rec: 11/14/22 16:01 [facility] [id number]) Physical Therapy Treatment Exercises Exercises Ankle Pumps,Gluteal Sets Education Education Provided Precautions,Weight Bearing Status,Post-Op Packet,Safety Other Treatments Other Treatment Performed no family/friends present Post hip precaution education provided during mobility/gait M7 PT-IP Assessment and Plan Start: 11/14/22 15:05 Freq: NEEDED Status: Active Protocol: Document 11/14/22 15:44 DLM (Rec: 11/14/22 16:01 [facility] [id number]) PT Summary Assessment and Plan Potential Rehabilitation Potential Excellent Status of Condition at Evaluation Evolving Summary Impairments Pain,ROM,Strength,Balance,Bed Mobility,Transfers,Gait, Activity Tolerance Assessment Summary Ras is alert and resting in bed. He reports having little to no pain today in his right hip. Educated pt in his posterior hip precautions. He was able to sit up on the edge of the bed, progress to gait in his room with FWW and sit up in the recliner. Pt left sitting up with his nurse aware. He is moving slowly and with great caution this visit . He is motivated to discharge home and be as independent as possible. Recommend an Occupational therapy evaluation to assist with ADL retraining to manage his posterior hip precautions. Pt will need to get equipment to use at home before discharge. Anticipate he will need 1-2 more days of therapy before being ready to discharge. Goals Bed Mobility Goal Independent Transfer Goal Independent,Front Wheeled Walker Gait Goal Independent,Front Wheel Walker Gait Distance 150 feet Other Goals up/down 3 steps with rail independently Days to Meet Goals 3 Frequency of Treatment Frequency Of Treatment Twice a Day Treatment Plan Physical Therapy Treatment Plan Bed Mobility Training,Transfer Training,Gait Training, Therapeutic Exercise,Balance Retraining,Post Op Education, Discharge Planning,Hot or Cold Pack,Neuromuscular Re-ed Precautions Posterior Hip Precautions No Hip Flexion > 90 degrees,No Hip Internal Rotation,No Hip Adduction Weight Bearing Status Weight Bearing Status Weight Bear as Tolerated Allowed Weight Bearing Amount (enter % right LE or #) (%) Recommendations To Nursing Amount of Assist Needed Standby Assistance Discharge Recommendations PT Discharge Recommendations Home Other Discharge Recommendations Recommend occupational therapy evaluation to train him in ADL's with posterior hip precautions including adaptive equipment He is not safe to discharge today Equipment Needed for Home Before FWW, raised toilet seat with Discharge armrests, shower chair, anthropometrist (defer to OT if more adaptive equipment needed for dressing) Transportation Needs at Discharge Private Vehicle
--- NOTE | 2022-11-14 15:44 | PT.IIE ---
Current Diagnoses Pathological fracture, right femur, initial encounter for fracture (11/12/22) Surgery Performed Operation Date: 11/14/22 07:45 Actual Procedures p Total Hip Arthroplasty(Right) - Girish Arzola MD Surgical History (Last Reviewed 11/14/22 @ 07:33 by Girish Arzola MD) H/O knee surgery Medical History (Last Reviewed 11/14/22 @ 07:33 by Girish Arzola MD) No pertinent past medical history Physical Therapy Inpatient Evaluation/Re-Eval M1 PT/OT-IP Prior Functional Status Start: 11/14/22 15:05 Freq: NEEDED Status: Active Protocol: Document 11/14/22 15:44 DLM (Rec: 11/14/22 16:01 DL [id number]) Medical Review Prior Functional Status Medical History Reviewed Yes Diet/Fluid Consistency Regular Communication WNL, glasses Mobility and Gait Independent without device, rides bike Activities of Daily Living and IADL's Independent, does not use shower nor toilet in his RV. He uses a shower that is set up outside. He uses the toilet in the shop area. 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 3 steep steps to enter with rail Home Environment Standard Height Toilet,Walk in Shower Additional Social History Comment He may be able to stay in the shop instead of his trailer, he is talking to the supervisor cigar making hand. The shop has a couch and bathroom to use. M2 PT-IP Current Condition Start: 11/14/22 15:05 Freq: NEEDED Status: Active Protocol: Document 11/14/22 15:44 DLM (Rec: 11/14/22 16:01 DL [id number]) Physical Therapy Current Condition Current Condition Evaluation Date 11/14/22 Treatment Diagnosis left LISSA s/p fx, posterior approach, impaired gait/ mobility Onset Date 11/12/22 M3 PT-IP Subjective Start: 11/14/22 15:05 Freq: NEEDED Status: Active Protocol: Document 11/14/22 15:44 DLM (Rec: 11/14/22 16:01 DL [id number]) Subjective Physical Therapy Visit Type Type Initial Evaluation Visit Start Time 15:10 Visit Stop Time 15:44 Total Visit Minutes 34 Number of MANAGER COMPANY Visits 0 Physical Therapy Visit Comments Patient Comments He reports he has a lot of friends who can help him on [employer]. He has no DME at this time. He is happy to be out of bed today. Patient Goals Discharge home Therapy Pain Assessment Pain When Pain Assessed During Mobility Pain Present Pain Present Pain Reported Location R hip Intensity 2 Scale Used Numeric (0 - 10) Description Tender,With Movement Pain Behaviors Guarding M4 PT-IP Mobility and Gait Start: 11/14/22 15:05 Freq: NEEDED Status: Active Protocol: Document 11/14/22 15:44 DLM (Rec: 11/14/22 16:01 DL [id number]) PT-Bed Mobility Assessment Supine to Sit Supine to Sit Standby Assistance Scooting Scooting to Edge of Bed Independent Scooting Up and Down in Bed Independent PT-Transfer Assessment Sit to and From Stand Sit to and from Stand Standby Assistance,Use of Upper Extremities Equipment Transfer Assistive Device Gait Belt,Front Wheeled Walker Transfers Transfer Destination Chair Transfer Technique Stand Step Pivot Transfer Ability Level of Assist Standby Assistance,Use of Upper Extremities Comments Mobility Comments He is moving slowly but is being cautious. He is able to use his UE's to assist with mobility. Got out of the left side of the bed today per pt preference. Pt up to the recliner with call light close and instructions to have staff assist for mobility Gait Assessment Gait Gait Assistance Required: Standby Assistance Distance (Feet) 10 Able to Maintain Weight Bearing Status Yes During Gait Assistive Devices Assistive Device Gait Belt,Front Wheeled Walker Gait Deviations General Gait Pattern Antalgic Factors Limiting Gait Function Factors Limiting Gait Function Decreased Activity Tolerance, Decreased Strength,Limited Range of Motion,Pain Comments Gait Comments he is ambulating slow but shows safe use of the FWW. Stair Climbing Assessment Comments Stair Climbing Comments did not perform this visit PT-Balance Assessment Sitting Balance and Reactions Static Sitting Balance Ability Normal Dynamic Sitting Balance Ability Normal Standing Balance and Reactions Static Standing Balance Ability Good Dynamic Standing Balance Ability Good Device Used FWW M5 PT-IP Objective Assessments Start: 11/14/22 15:05 Freq: NEEDED Status: Active Protocol: Document 11/14/22 15:44 DLM (Rec: 11/14/22 16:01 DL [id number]) Orientation Orientation/Cognition Level of Alertness Alert Orientation Name,Age,Birthday,Month,Date, Year,Day of Week,Place, Situation Language Function Ability No Deficits Noted Safety Awareness Understands Safety Issues Memory Description No Deficits Noted Comments cooperative and pleasant Gross Range of Motion Upper Extremity ROM Assessment Within Functional Limits Lower Extremity ROM Assessment Right Impaired Impairments posterior hip precautions Strength Upper Extremity Strength Assessment Within Functional Limits Lower Extremity Strength Assessment Right Impaired Hip flexion 3+/5 Knee ext 4/5 Ankle DF 4+/5 Coordination Assessment Gross Coordination Gross Coordination WNL Sensation Assessment Sensation Gross Sensation WNL Comments Sensation Comments he has thick stin on bottom of hisf feet which he reports is due to psoriasis Muscle Tone Muscle Tone WNL Yes M6 PT-IP Treatment Start: 11/14/22 15:05 Freq: NEEDED Status: Active Protocol: Document 11/14/22 15:44 DLM (Rec: 11/14/22 16:01 DL [id number]) Physical Therapy Treatment Exercises Exercises Ankle Pumps,Gluteal Sets Education Education Provided Precautions,Weight Bearing Status,Post-Op Packet,Safety Other Treatments Other Treatment Performed no family/friends present Post hip precaution education provided during mobility/gait M7 PT-IP Assessment and Plan Start: 11/14/22 15:05 Freq: NEEDED Status: Active Protocol: Document 11/14/22 15:44 DLM (Rec: 11/14/22 16:01 DL [id number]) PT Summary Assessment and Plan Potential Rehabilitation Potential Excellent Status of Condition at Evaluation Evolving Summary Impairments Pain,ROM,Strength,Balance,Bed Mobility,Transfers,Gait, Activity Tolerance Assessment Summary Ras is alert and resting in bed. He reports having little to no pain today in his right hip. Educated pt in his posterior hip precautions. He was able to sit up on the edge of the bed, progress to gait in his room with FWW and sit up in the recliner. Pt left sitting up with his nurse aware. He is moving slowly and with great caution this visit . He is motivated to discharge home and be as independent as possible. Recommend an Occupational therapy evaluation to assist with ADL retraining to manage his posterior hip precautions. Pt will need to get equipment to use at home before discharge. Anticipate he will need 1-2 more days of therapy before being ready to discharge. Goals Bed Mobility Goal Independent Transfer Goal Independent,Front Wheeled Walker Gait Goal Independent,Front Wheel Walker Gait Distance 150 feet Other Goals up/down 3 steps with rail independently Days to Meet Goals 3 Frequency of Treatment Frequency Of Treatment Twice a Day Treatment Plan Physical Therapy Treatment Plan Bed Mobility Training,Transfer Training,Gait Training, Therapeutic Exercise,Balance Retraining,Post Op Education, Discharge Planning,Hot or Cold Pack,Neuromuscular Re-ed Precautions Posterior Hip Precautions No Hip Flexion > 90 degrees,No Hip Internal Rotation,No Hip Adduction Weight Bearing Status Weight Bearing Status Weight Bear as Tolerated Allowed Weight Bearing Amount (enter % right LE or #) (%) Recommendations To Nursing Amount of Assist Needed Standby Assistance Discharge Recommendations PT Discharge Recommendations Home Other Discharge Recommendations Recommend occupational therapy evaluation to train him in ADL's with posterior hip precautions including adaptive equipment He is not safe to discharge today Equipment Needed for Home Before FWW, raised toilet seat with Discharge armrests, shower chair, 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
[2022-11-14] MEDS: ACETAMINOPHEN 325 MG TABLET 650 MG PO (21:07)
[2022-11-14] MEDS: DOCUSATE 100 MG CAPSULE PO (21:07)
[2022-11-15 00:12] VITALS: BP 126/78; PULSE 81; RESP 18; TEMP 36.8; O2SAT 99
[2022-11-15] MEDS: ACETAMINOPHEN 325 MG TABLET 650 MG PO (03:13)
[2022-11-15 03:35] VITALS: BP 122/82; PULSE 75; RESP 20; TEMP 37.5; O2SAT 99
[2022-11-15] MEDS: OXYCODONE IR 5 MG TABLET PO (06:04)
[2022-11-15 06:28] LABS: BUN Creatinine Ratio 10.8 (6-22); Blood Urea Nitrogen 7 mg/dL (9-20); Carbon Dioxide 28 mmol/L (22-32); Chloride 92 mmol/L (98-107); Estimated Glomerular Filt Rate > 60 mL/min (>60); Glucose 106 mg/dL (80-110); HEMOLYSIS < 15 (0-50); Magnesium 1.8 mg/dL (1.6-2.3); Potassium 3.8 mmol/L (3.4-5.1); Sodium 127 mmol/L (137-145)
[2022-11-15 06:31] LABS: Add Manual Diff / Slide Review NO; Basophils Absolute Auto 100 /uL (0-100); Basophils Percent Auto 0.5 % (0-2); Eosinophils Absolute Auto 0 /uL (0-450); Eosinophils Percent Auto 0.2 % (2-4); Hematocrit 34.3 % (41-53); Hemoglobin 11.6 g/dL (13.5-17.5); Lymphocytes Absolute Auto 1600 /uL (1100-4500); Lymphocytes Percent Auto 13.4 % (25-40); Mean Corpuscular HGB Conc 33.9 % (30-36); Mean Corpuscular Hemoglobin 30.1 PG (26-34); Mean Corpuscular Volume 88.7 fL (80-100); Monocytes Absolute Auto 1600 /uL (0-900); Monocytes Percent Auto 13.2 % (3-14); Neutrophils Absolute Auto 8500 /uL (1500-7000); Neutrophils Percent Auto 72.7 % (50-75); Platelet Count 265 X10^3/uL (150-400); Red Blood Cell Count 3.87 X10^6/uL (4.5-5.9); Red Cell Distribution Width 14.8 % (11.6-14.8); White Blood Cell Count 11.8 X10^3/uL (4.5-11.0)
[2022-11-15 07:30] VITALS: BP 133/80; PULSE 99; RESP 18; TEMP 37.4; O2SAT 98
[2022-11-15] MEDS: DOCUSATE 100 MG CAPSULE PO (08:16)
[2022-11-15] MEDS: polyethylene glycoL 3350 17 GM POWD.PACK PO (08:16)
[2022-11-15] MEDS: ASPIRIN EC 81 MG TABLET PO (08:16)
--- NOTE | 2022-11-15 08:18 | PM.PNPO.1 ---
Subjective Subjective Date Patient Seen: 11/15/22 Time Patient Seen: 08:19 Interval history: Lying in bed, comfortable, would like to go home today if possible. Exam Vital Signs (past 8 hours): - 11/15/22 03:35 11/15/22 07:30 Temperature 99.5 F 99.3 F Pulse Rate 75 99 H Respiratory Rate 20 18 Blood Pressure 122/82 133/80 Pulse Oximetry 99 98 Oxygen Flow Rate 0 0 Oxygen Delivery Method Room Air Oxygen Flow Rate 0 Narrative Exam Narrative: 5/5 strength in hip flexors, quadriceps, hamstrings, DF, PF, EHL on right. Sensation to light touch intact throughout RLE. Calves soft, compressible, nontender and without palpable cords or masses. Aquacel dressing CDI. Objective Labs 11/15/22 05:28 11/15/22 05:28 Labs: Laboratory Results - last 24 hr 11/15/22 11/15/22 05:28 05:28 WBC 11.8 H RBC 3.87 L Hgb 11.6 L Hct 34.3 L MCV 88.7 MCH 30.1 MCHC 33.9 RDW 14.8 Plt Count 265 Neut % (Auto) 72.7 Lymph % (Auto) 13.4 L [place] % (Auto) 13.2 Eos % (Auto) 0.2 L Baso % (Auto) 0.5 Neut # (Auto) 8500 H Lymph # (Auto) 1600 [place] # (Auto) 1600 H Eos # (Auto) 0 Baso # (Auto) 100 Sodium 127 L Potassium 3.8 Chloride 92 L Carbon Dioxide 28 BUN 7 L Creatinine 0.65 L Estimated GFR > 60 BUN/Creatinine Ratio 10.8 Glucose 106 Calcium 8.0 L Magnesium 1.8 PFSH Medical History No pertinent past medical history Surgical History H/O knee surgery Family History Mother Cancer Father Cancer Social History household members: none Smoking Status: Former smoker alcohol intake: current Assessment & Plan Post-op Assessment and plan (1) S/P total hip arthroplasty: Assessment and Plan narrative: WBAT right leg, posterior hip precautions. ASA 81 mg BID x 4 weeks for VTE prophylaxis. F/u w/ ortho PA in 2 weeks for wound check, then w/ Dr Arzola in 6 weeks for repeat imaging and assessment. Per yesterday's PT note, pt may need another 1-2 days of inpt PT prior to d/c home. Postoperative Procedures: Procedures Operation Date: 11/14/22 07:45 Actual Procedure Side Surgeon p Total Hip Arthroplasty Right Girish Arzola MD Postoperative day: 1
--- NOTE | 2022-11-15 08:48 | PT.IPTN ---
Current Diagnoses Pathological fracture, right femur, initial encounter for fracture (11/12/22) Presence of unspecified artificial hip joint (11/12/22) Surgery Performed Operation Date: 11/14/22 07:45 Actual Procedures p Total Hip Arthroplasty(Right) - Girish Arzola MD Physical Therapy Treatment Note M2 PT-IP Current Condition Start: 11/14/22 15:05 Freq: NEEDED Status: Active Protocol: Document 11/14/22 15:44 DLM (Rec: 11/14/22 16:01 DLM [id number]) Physical Therapy Current Condition Current Condition Evaluation Date 11/14/22 Treatment Diagnosis Right LISSA s/p fx, posterior approach, impaired gait/ mobility Onset Date 11/12/22 M3 PT-IP Subjective Start: 11/14/22 15:05 Freq: NEEDED Status: Active Protocol: Document 11/15/22 09:45 TS (Rec: 11/15/22 10:29 TS [id number]) Subjective Physical Therapy Visit Type Type Treatment Note Visit Start Time 08:48 Visit Stop Time 09:36 Total Visit Minutes 48 Physical Therapy Visit Comments Patient Comments Pt reports his pain is minimal today and he's happy to start moving again. He continues to report he has friends that can assist him and would like to go home. Patient Goals Discharge home Therapy Pain Assessment Pain When Pain Assessed At Rest Pain Present Pain Present Pain Reported Location R hip Intensity 2 Scale Used Numeric (0 - 10) Description Aching,With Movement Pain Behaviors Guarding,Holding Area M4 PT-IP Mobility and Gait Start: 11/14/22 15:05 Freq: NEEDED Status: Active Protocol: Document 11/15/22 09:45 TS (Rec: 11/15/22 10:29 TS [id number]) PT-Bed Mobility Assessment Supine to Sit Supine to Sit Independent Scooting Scooting to Edge of Bed Independent Scooting Up and Down in Bed Independent PT-Transfer Assessment Sit to and From Stand Sit to and from Stand Standby Assistance,Use of Upper Extremities Equipment Transfer Assistive Device Gait Belt,Front Wheeled Walker Comments Mobility Comments Pt found resting in bed, agreeable to PT session. Educated pt on precautions for posterior hip, he recalled 1/ 3, documentation was provided as eval. Pt performed ankle pumps, quad set, glute sets, hip ABD x5, provided him education on the importance of ex to strenghten muscles of hip, intensity and frequency. Supine to sit ind with BUE support on bed for uprighting trunk. He performed sit to stand x4 SBA with FWW, provided cues for BUE support on bed and maintaining hip flexion precaution. He ambulated ~200' around unit SBA, step thru gait, no buckling or LOB, required cues for keeping FWW close and education on wbering status. He performed stairs x4 SBa with cues for handrail assist with LUE and leading with unaffectd side and descending with affected side. First step pt felt unsteady but improved with more reps, SBA only. Pt was left in bed side chair, friend in room, RN notified. Gait Assessment Gait Gait Assistance Required: Standby Assistance Distance (Feet) 200 Able to Maintain Weight Bearing Status Yes During Gait Assistive Devices Assistive Device Gait Belt,Front Wheeled Walker Gait Deviations General Gait Pattern Antalgic Factors Limiting Gait Function Factors Limiting Gait Function Limited Range of Motion,Pain Comments Gait Comments See mobility comments. Stair Climbing Assessment Evaluation Level of Assist On Stairs Standby Assistance Devices Stair Climbing Assistive Devices Left Railing Technique/Endurance Stair Climbing Direction Ascend and Descend Stair Climbing Technique Step to Step Number of Steps Climbed 4 Comments Stair Climbing Comments Pt performed steps x4, provided cues for sequencing and for LUE hand rail assist. Pt reported feeling unsteady on first attempt but no signs of buckling or LOB, improved with reps. PT-Balance Assessment Sitting Balance and Reactions Static Sitting Balance Ability Normal Dynamic Sitting Balance Ability Normal Standing Balance and Reactions Static Standing Balance Ability Good Dynamic Standing Balance Ability Good Device Used FWW Comments Other Balance Tests/Deviations/Treatment Pt maintains good midline in : sitting without use of UE support. Standing balance is good inside FWW, no LOB. M5 PT-IP Objective Assessments Start: 11/14/22 15:05 Freq: NEEDED Status: Active Protocol: Document 11/14/22 15:44 DL (Rec: 11/14/22 16:01 ADRIANO [id number]) Orientation Orientation/Cognition Level of Alertness Alert Orientation Name,Age,Birthday,Month,Date, Year,Day of Week,Place, Situation Language Function Ability No Deficits Noted Safety Awareness Understands Safety Issues Memory Description No Deficits Noted Comments cooperative and pleasant Gross Range of Motion Upper Extremity ROM Assessment Within Functional Limits Lower Extremity ROM Assessment Right Impaired Impairments posterior hip precautions Strength Upper Extremity Strength Assessment Within Functional Limits Lower Extremity Strength Assessment Right Impaired Hip flexion 3+/5 Knee ext 4/5 Ankle DF 4+/5 Coordination Assessment Gross Coordination Gross Coordination WNL Sensation Assessment Sensation Gross Sensation WNL Comments Sensation Comments he has thick skin on bottom of hisf feet which he reports is due to psoriasis Muscle Tone Muscle Tone WNL Yes M6 PT-IP Treatment Start: 11/14/22 15:05 Freq: NEEDED Status: Active Protocol: Document 11/15/22 09:45 TS (Rec: 11/15/22 10:29 TS [id number]) Physical Therapy Treatment Exercises Exercises Ankle Pumps,Gluteal Sets,Quad Sets,Heel Slides Education Education Provided Precautions,Weight Bearing Status,Post-Op Packet,Safety Other Treatments Other Treatment Performed Provided education on precautions, pt could recall 1 /3 and exercises. M7 PT-IP Assessment and Plan Start: 11/14/22 15:05 Freq: NEEDED Status: Active Protocol: Document 11/15/22 09:45 TS (Rec: 11/15/22 10:29 [id number]) PT Summary Assessment and Plan Potential Rehabilitation Potential Excellent Status of Condition at Evaluation Evolving Summary Impairments Pain,ROM,Strength,Balance,Bed Mobility,Transfers,Gait, Activity Tolerance Assessment Summary Ras has little complaints about pain today and is not limiting him in his mobility. He performed bed mobility IND. He required cues for hip precautions during sit to stands of not breaking 90D of hip flex and cues for wbering status. He progressed his ambulation to ~200 around unit SBA with no signs or reports of fatigue or LOB. He performed stairs x4 SBA, was unsteady on first attempt, no signs of LOB, improved with reps. PT is recommending home with assist as needed and HHPT or outpatient therapy. He has friends at home that can help assist him with his needs but does have some details to sort out about transportation home and whether or not he wants a FWW upon d/c from hospital. Goals Bed Mobility Goal Independent Transfer Goal Independent,Front Wheeled Walker Gait Goal Independent,Front Wheel Walker Gait Distance 150 feet Other Goals up/down 3 steps with rail independently Days to Meet Goals 3 Frequency of Treatment Frequency Of Treatment Twice a Day Treatment Plan Physical Therapy Treatment Plan Bed Mobility Training,Transfer Training,Gait Training, Therapeutic Exercise,Balance Retraining,Post Op Education, Discharge Planning,Hot or Cold Pack,Neuromuscular Re-ed Precautions Posterior Hip Precautions No Hip Flexion > 90 degrees,No Hip Internal Rotation,No Hip Adduction Weight Bearing Status Weight Bearing Status Weight Bear as Tolerated Allowed Weight Bearing Amount (enter % right LE or #) (%) Recommendations To Nursing Amount of Assist Needed 1 Person Assist Discharge Recommendations PT Discharge Recommendations Home Equipment Needed for Home Before FWW, raised toilet seat with Discharge armrests, shower chair, 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
--- NOTE | 2022-11-15 10:36 | OT.IP.EVAL ---
Current Diagnoses Pathological fracture, right femur, initial encounter for fracture (11/12/22) Presence of unspecified artificial hip joint (11/12/22) Surgery Performed Operation Date: 11/14/22 07:45 Actual Procedures p Total Hip Arthroplasty(Right) - Girish Arzola MD Past Medical History (Last Reviewed 11/14/22 @ 07:33 by Girish Arzola MD) No pertinent past medical history Surgical History (Last Reviewed 11/14/22 @ 07:33 by Girish Arzola MD) H/O knee surgery Occupational Therapy Inpatient Evaluation/Re-Eval M1 PT/OT-IP Prior Functional Status Start: 11/14/22 15:05 Freq: NEEDED Status: Active Protocol: Document 11/15/22 10:10 [facility] (Rec: 11/15/22 12:34 [facility] [id number]) Medical Review Prior Functional Status Medical History Reviewed Yes Diet/Fluid Consistency Regular Communication WNL, glasses Mobility and Gait Independent without device, rides bike Activities of Daily Living and IADL's Independent, does not use shower nor toilet in his RV. He uses a shower that is set up outside. He uses the toilet in the shop area. 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 3 steps to enter with rail Home Environment Standard Height Toilet,Walk in Shower Additional Social History Comment He may be able to stay in the shop instead of his trailer, he is talking to the back filler operator. The shop has a couch and bathroom to use. M2 OT-IP Current Condition Start: 11/15/22 12:06 Freq: Status: Active Protocol: Document 11/15/22 10:10 [facility] (Rec: 11/15/22 12:34 [facility] [id number]) Occupational Therapy Current Condition Current Condition Evaluation Date 11/15/22 Treatment Diagnosis R LISSA due to slip and fall at home. Diagnosis Onset Date 11/12/22 Post Operative Precautions Posterior Hip Precautions No Hip Flexion > 90 degrees,No Hip Internal Rotation,No Hip Adduction M3 OT- IP Subjective and Pain Start: 11/15/22 12:06 Freq: Status: Active Protocol: Document 11/15/22 10:10 [facility] (Rec: 11/15/22 12:34 [facility] [id number]) OT- Subjective Occupational Therapy Visit Type Type Initial Evaluation Visit Start Time 10:10 Visit Stop Time 10:36 Total Visit Minutes 26 Occupational Therapy Visit Comments Patient Comments Pt agreed to get up and go over OT needs. Patient/Caregiver Goals TO go home. OT Pain Assessment Pain When Pain Assessed At Rest Pain Present Pain Present Denied Pain M4 OT- IP ADL's Start: 11/15/22 12:06 Freq: Status: Active Protocol: Document 11/15/22 10:10 [facility] (Rec: 11/15/22 12:34 [facility] [id number]) OT FFX-Zler-Tuzinus General Evaluation Self-Feeding Ability Independent OT ADL-Grooming General Evaluation Grooming Ability Independent Areas Needing Assistance Retrieving/Set-up of Grooming Items OT ADL-Oral Care General Eval Oral Care Ability Independent Areas of Assistance Retrieving/Set-Up of Items OT ADL-Dressing General Eval Lower Body Dressing Ability Maximum Assistance Areas Needing Assistance Socks Comments OT Dressing Comments Able to go over LB dressing equipment with pt and able to issue drill press operator numerical control , shoe horn , and long handled shoe horn. Pt will still benefit from a sock aid. Pt states ther property back filler operator is assisting him to get equipment. Educated pt to abisai his RLE first and take our last in order to best follow his hip precautions. OT ADL-Toileting Comments OT Toileting Comments Pt will benefit from use or urinal and BSC or RTS with handles to use. Pt re-given list for equipment needs. Asked pt to call his property back filler operator who offered to get the equipment and pt states to do it later as his phone is being charged, also offered pt to use therapist's phone and pt states and insists will take care of it later. OT ADL-Bathing Comments OT Bathing Comments Pt will benefit from a shower chair. Pt not wanting to shower today. M5 OT- IP IADL's Start: 11/15/22 12:06 Freq: Status: Active Protocol: Document 11/15/22 10:10 [facility] (Rec: 11/15/22 12:34 [facility] [id number]) OT-Instrumental Activities of Daily Living Deficits IADL Deficits Identified Deficits Home Safety Awareness Awareness of Need for Assistance at Home Decreased Awareness Ability to Problem Solve Emergency Able to Problem Solve Situations Home Safety Comments Pt will benefit from assist with IADL needs and ADL's if not able to get the rest of his LB dressing equipment. Bread Packer Bread Packer Comments Pt will need assist. Driving Driving Comments Pt will need assist. M6 OT- IP Functional Cognition Start: 11/15/22 12:06 Freq: Status: Active Protocol: Document 11/15/22 10:10 [facility] (Rec: 11/15/22 12:34 [facility] [id number]) Cognitive Factors Limiting Selfcare Function Cognitive Ability Level of Alertness Alert Patient Orientation Name,Place,Situation Attention Span Ability Capable of Focused Attention, Capable of Sustained Attention Ability to Follow Commands Able to Follow One Step Commands Cognitive Comments Cognitive Assessment Comments Pt able to states his precautions and incorporate during ADl and mobility needs. OT- Vision and Hearing OT- Hearing Assessment OT- Hearing Assessment WFL OT- Vision Assessment Visual Acuity Glasses All The Time M7 OT- IP Mobility and Balance Start: 11/15/22 12:06 Freq: Status: Active Protocol: Document 11/15/22 10:10 [facility] (Rec: 11/15/22 12:34 [facility] [id number]) OT-Transfer Assessment Sit to and From Stand Sit to and from Stand Independent Transfers Transfer Ability Independent Technique Transfer Destination Chair Transfer Technique Stand Step Pivot Devices Transfer Assistive Devices None,Front Wheeled Walker Comments Mobility Comments Pt able to independently get up from the recliner on his own and move in the room. OT- Balance Assessment Sitting Balance and Reactions Static Sitting Balance Ability Normal Dynamic Sitting Balance Ability Good Standing Balance and Reactions Static Standing Balance Ability Good Dynamic Standing Balance Ability Good M8 OT- IP Objective Assessments Start: 11/15/22 12:06 Freq: Status: Active Protocol: Document 11/15/22 10:10 [facility] (Rec: 11/15/22 12:34 [facility] [id number]) OT Strength Upper Extremity Strength Assessment Within Functional Limits M9 OT- IP Assessment and Plan Start: 11/15/22 12:06 Freq: Status: Active Protocol: Document 11/15/22 10:10 [facility] (Rec: 11/15/22 12:34 [facility] [id number]) OT Summary Assessment and Plan Potential Rehabilitation Potential Excellent Analytic Complexity at Evaluation Low Summary OT Impairments Balance,Dressing,Bathing Progress Towards Goals Progressing Toward Goals Assessment Summary Pt low complexity and main barriers are if not able to get equipment needs will need assist for ADL and mobility needs. Pt will need assist for IADL needs. Pt states lives in on back filler operator's property in which the is able to assist with his needs if needed. Pt already issued a FWW, drill press operator numerical control, long handle shoe horn and sponge. Pt will greatly benefit from a sock aid , BSC/RTS with handles, and shower chair at this time. PT able to mention equipment needs yesterday and OT able tot reiterate today on his needs and even offered to call his friend to follow through with needs, pt states will take care of it on his own. Pt motivated to go home today. Goals Dressing Goal Independent Bathing Goal Independent Shower Transfer Goal Independent Days to Meet Goals 3 Frequency of Treatment Frequency Of Treatment Once a Day Treatment Plan OT Treatment Plan ADL Training,Functional Mobility,Patient/Family Education,Discharge Planning Discharge Recommendations OT Discharge Recommendations Home with Assistance,Home Health Home Equipment Needs sock aid, RTS versus BSC, shower chair Transportation Needs at Discharge Private Vehicle
[2022-11-15 11:00] VITALS: BP 126/90; PULSE 90; RESP 16; TEMP 37.3; O2SAT 99
--- NOTE | 2022-11-15 11:59 | CM.DPNOTE ---
DC Note Patient cleared by therapies for return home and patient very pleased. Patient medically discharged Provided ferry schedule to patient and he plans to coordinate w/a friend to get him home, priority [place] [facility] [place] time Plan: Discharge home w/friend to transport, close outpatient f/u recommended Patient does not qualify for HH because he needs a PCP for [facility] (the only agency that [facility]) to start care JW
--- NOTE | 2022-11-15 12:31 | PM.DS.1 ---
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 This occurred 2 days ago. He was taken to [facility] were x-rays were obtained demonstrating a right femoral neck fracture. He is otherwise healthy has no heart or lung issues. He takes no medications at home. He does smoke marijuana and drink 4 beers a day. He has not had any withdrawal symptoms since he has been in the hospital. He lives by himself in a trailer. He states that he has 3 steps. He denies any distal numbness or tingling. No other complaints this time. Discharge Providers Provider Date of admission: 11/12/22 13:13 Discharge Date: 11/15/22 Primary care physician: Doctor Esme MD Consults: 11/12/22 11:26 Consult to Orthopedic Surgery Stat Comment: Consulting Provider: Girish Arzola Reason for consultation: hip fracture Has provider been notified: Yes 11/12/22 14:40 Consult to Brush Stainer Routine Comment: 11/14/22 06:00 Consult to Anesthesiology Routine Comment: Consulting Provider: Anesthesiologist Reason for consultation: Regional block for post operative pain control 11/14/22 10:40 Consult to Discharge Planning Routine Comment: Consult to Physical Therapy Evaluate & Treat Comment: Physician Instructions: Evaluate and Treat 11/15/22 08:29 Consult to Occupational Therapy Evaluate & Treat Comment: Physician Instructions: Evaluate and treat 11/15/22 10:47 Consult to Physical Therapy Evaluate & Treat Comment: Physician Instructions: FWW for home use Discharge provider: Shubham Mendieta DO Summary Hospital Course Discharge Diagnosis: 1. Right femoral neck fracture, pathologic, acute, present on admission ?- underwent fracture repair with ortho on 11/14 ?- pain control PRN ?- doing well post-op ?- PT eval ordered and cleared for home - placed on BID 81mg ASA x4 weeks ? 2. Polysubstance use ?- daily marijuana user, former tobacco use, and daily EtOH use ?- monitor for signs of withdrawal, but no concerning history of high risk features including admission, seizure, or intubations. CIWA precautions, nurse to contact provider if benzodiazepines are needed. Hospital Course: See above problem list. Time Spent with Patient Time spent: Greater than 30 minutes Exam Vital Signs (past 8 hours): - 11/15/22 07:30 Temperature 99.3 F Pulse Rate 99 H Respiratory Rate 18 Blood Pressure 133/80 Pulse Oximetry 98 Oxygen Flow Rate 0 Oxygen Delivery Method Room Air Oxygen Flow Rate 0 Narrative Exam Narrative: General:? Patient is thin appearing, appears stated age, in no distress at this time. HEENT:? Normocephalic, atraumatic, extraocular muscles intact, oral pharynx is clear and mucous membranes are moist. Neck: supple and symmetric, trachea is midline, no cervical adenopathy. Chest:?Slightly increased AP diameter and normal contour without kyphoscoliosis, no tachypnea, equal chest rise bilaterally. Lungs:? CTA b/l no wheezing rhonchi or rales. Cardio:?RRR no m/r/g. Abdomen: S NT ND. Musculoskeletal:?Right leg with postop dressing on lateral hip. Extremities: No edema or joint effusions. No cyanosis or clubbing. Skin:? Pale,? Warm to touch,dry and intact without rashes, ulcerations or petechiae.? Neuro:? Alert and orientated x3,? sensation to touch intact in all extremities, no gross deficits noted of cranial nerves. Psych:? Patient has a well-kept appearance, appropriate affect, mental status attitude thought context and judgment are appropriate for age. Objective Labs 11/15/22 05:28 11/15/22 05:28 Labs: Laboratory Results - last 24 hr 11/15/22 11/15/22 05:28 05:28 WBC 11.8 H RBC 3.87 L Hgb 11.6 L Hct 34.3 L MCV 88.7 MCH 30.1 MCHC 33.9 RDW 14.8 Plt Count 265 Neut % (Auto) 72.7 Lymph % (Auto) 13.4 L [place] % (Auto) 13.2 Eos % (Auto) 0.2 L Baso % (Auto) 0.5 Neut # (Auto) 8500 H Lymph # (Auto) 1600 [place] # (Auto) 1600 H Eos # (Auto) 0 Baso # (Auto) 100 Sodium 127 L Potassium 3.8 Chloride 92 L Carbon Dioxide 28 BUN 7 L Creatinine 0.65 L Estimated GFR > 60 BUN/Creatinine Ratio 10.8 Glucose 106 Calcium 8.0 L Magnesium 1.8 PFSH Medical History No pertinent past medical history Surgical History H/O knee surgery Family History Mother Cancer Father Cancer Social History household members: none Smoking Status: Former smoker alcohol intake: current Discharge Plan Discharge Plan Patient Disposition: Home Provider Discharge Comment: You broke your hip and will now be on twice daily aspirin for 4 weeks to prevent a blood clot in your legs. Discharge orders & Medications Prescriptions: New aspirin 81 mg Tablet,Delayed Release (Dr/Ec) 81 mg PO BID Qty: 60 0RF Rx Instructions: BID x 4 weeks for VTE prophylaxis oxycodone-acetaminophen [Percocet] 5-325 mg tablet 1 tab PO Q4-6H PRN (Reason: pain) Qty: 20 0RF Continued No Known Home Medications Medication counseling provided by Pharmacist: Yes Follow up/Referrals: Girish Arzola MD [Physician] - 2 Weeks (Follow up w/ PA at [facility] in 10-14 days for wound check. F/u w/ Dr Arzola in 6 weeks for xrays at office and assessment.) Doctor Victoria MD [Primary Care Provider] - Diet/Activity/Treatments Activity: Weightbearing as tolerated to right leg. Posterior hip precautions. Cold/Heat Therapy: Ice to hip as needed for pain. Skin/Wound/Dressing Care Dressing: May shower. Leave Aquacel dressing in place until follow up in office. No bathing or otherwise soaking incision. Call office if dressing becomes saturated inside. Visit Report/Discharge Packet Instructions: DI for Hip Replacement Stand Alone Forms: Patient Portal/API, Stroke Signs & Symptoms, Surgery Discharge Discharge Data Primary Care Provider: Doctor Esme
[2022-11-15] MEDS: SODIUM CHLORIDE 0.9% 1,000 ML 1000 ML IV (12:45)
--- NOTE | 2022-11-15 13:48 | PC.NURSE ---
Addendum entered by Katalina Hicks R.N. 11/15/22 15:13: per orders pt received 1 liter NS bolus prior to discharge. Original Note: Patient is A&OX4, VSS, on RA. He reports pain is tolerable this a.m. without prn pain medications. He is able to participate with PT and ambulate in the gupta with FWW. He is tolerating po intake fairly. Aquacel to front of hip is c/d/i. Hospitalist at bedside clearing patient for discharge home after working with PT. He has a friend at bedside with private vehicle assisting to transport him to the ferry and apple picker his ordered medications. Patient verbalizes of discharge activity limitations, site care, medications, complications as well as follow up appointment. He is escorted via w/ch with all of his belongings to private vehicle with friend for discharge home via ferry (priority boarding pass dispensed) at approximately 1410.
== END 2022-11-15 14:15 | disposition home or self-care (01) | DRG 323 ==
LOC: ED 12:06 → AC 13:14
PROVIDERS: Orthopaedic Surgery; Admitting Provider Internal Medicine; Emergency Provider Emergency Medicine; Referring Provider Emergency Medicine; Visit Provider Internal Medicine
PROC: 0SR90JZ Replacement of Right Hip Joint with Synthetic Substitute, Open Approach (ICD-10-PCS; CPT 27130; principal; 2022-11-14 07:45)
DX: S72.011A Unspecified intracapsular fracture of right femur, initial encounter for closed fracture (principal); W01.0XXA Fall on same level from slipping, tripping and stumbling without subsequent striking against object, initial encounter; Y92.512 Supermarket, store or market as the place of occurrence of the external cause; Y99.0 Civilian activity done for income or pay; Z87.891 Personal history of nicotine dependence; Z20.822 Contact with and (suspected) exposure to COVID-19
CPT/HCPCS: 36415; 36592; 72170; 73502; 80048; 81003; 83735; 85025; 85610; 85730; 87635; 93005; 97110; 97116; 97162; 97165; 97530; 99284; C1776; C9803; C9290; J0171; J0690; J1100; J1170; J2250; J2405; J2704; J3010

== ENCOUNTER → 2023-02-27 10:32 | Outpatient (CLI) | payer OTHER, SELFPAY ==
[2023-02-27 20:12] LABS: Alanine Aminotransferase 14 IU/L (<50); Albumin 4.2 g/dL (3.5-5.0); Albumin Globulin Ratio 1.5 (1.0-2.8); Alkaline Phosphatase 47 U/L (38-126); Aspartate Aminotransferase 34 IU/L (17-59); BUN Creatinine Ratio 17.6 (6-22); Bilirubin Total 0.6 mg/dL (0.2-1.3); Blood Urea Nitrogen 13 mg/dL (9-20); Calcium 9.4 mg/dL (8.4-10.2); Carbon Dioxide 26 mmol/L (22-32); Chloride 99 mmol/L (98-107); Cholesterol 198 mg/dL (140-199); Estimated Glomerular Filt Rate > 60 mL/min (>60); Globulin 2.8 g/dL (1.7-4.1); Glucose 83 mg/dL (80-110); HEMOLYSIS < 15 (0-50); Potassium 4.4 mmol/L (3.4-5.1); Sodium 134 mmol/L (137-145); Triglycerides 48 mg/dL (35-150)
[2023-02-27 20:16] LABS: Add Manual Diff / Slide Review NO; Basophils Absolute Auto 100 /uL (0-100); Basophils Percent Auto 1.5 % (0-2); Eosinophils Absolute Auto 100 /uL (0-450); HEMOLYSIS < 15 (0-50); Hematocrit 36.2 % (41-53); Hemoglobin 13.1 g/dL (13.5-17.5); Iron 46 ug/dL (49-181); Lymphocytes Absolute Auto 1500 /uL (1100-4500); Lymphocytes Percent Auto 22.8 % (25-40); Mean Corpuscular HGB Conc 36.2 % (30-36); Mean Corpuscular Hemoglobin 34.1 PG (26-34); Mean Corpuscular Volume 94.4 fL (80-100); Monocytes Absolute Auto 800 /uL (0-900); Monocytes Percent Auto 11.4 % (3-14); Neutrophils Absolute Auto 4100 /uL (1500-7000); Neutrophils Percent Auto 62.3 % (50-75); Platelet Count 366 X10^3/uL (150-400); Red Blood Cell Count 3.84 X10^6/uL (4.5-5.9); Red Cell Distribution Width 15.6 % (11.6-14.8); White Blood Cell Count 6.6 X10^3/uL (4.5-11.0)
[2023-02-27 20:24] LABS: HDL Cholesterol 113 mg/dL (40-60); LDL Cholesterol Calculated 75 mg/dL (<100)
[2023-02-27 20:29] LABS: Percent Iron Saturation 15 % (20-50); Total Iron Binding Capacity 305 ug/dL (261-462); Transferrin 228 mg/dL (206-381)
[2023-02-27 21:12] LABS: Hep C Virus Ab w/Reflex Quant NEGATIVE s/c (NEGATIVE)
[2023-02-27 22:03] LABS: Ferritin 38 ng/mL (18-464)
[2023-02-28 00:36] LABS: Prostate Specific Antigen Scrn 2.82 ng/mL (0.1-4.0)
== END ==
PROVIDERS: PCP Physician Assistant; Visit Provider Physician Assistant
DX: B35.2 Tinea manuum (principal); Z12.5 Encounter for screening for malignant neoplasm of prostate
CPT/HCPCS: 80053; 80061; 82728; 83540; 83550; 85025; 86803; G0103

== ENCOUNTER → 2024-06-23 09:16 | Outpatient (CLI) | payer BC, SELFPAY ==
[2024-06-23 19:07] LABS: Add Manual Diff / Slide Review NO; Basophils Absolute Auto 100 /uL (0-100); Basophils Percent Auto 0.9 % (0-2); Eosinophils Absolute Auto 200 /uL (0-450); Eosinophils Percent Auto 3.9 % (2-4); Hematocrit 36.8 % (41-53); Hemoglobin 12.6 g/dL (13.5-17.5); Lymphocytes Absolute Auto 1800 /uL (1100-4500); Lymphocytes Percent Auto 28.7 % (25-40); Mean Corpuscular HGB Conc 34.3 % (30-36); Mean Corpuscular Hemoglobin 32.2 PG (26-34); Mean Corpuscular Volume 93.9 fL (80-100); Monocytes Absolute Auto 800 /uL (0-900); Monocytes Percent Auto 13.6 % (3-14); Neutrophils Absolute Auto 3300 /uL (1500-7000); Neutrophils Percent Auto 52.9 % (50-75); Platelet Count 276 X10^3/uL (150-400); Red Blood Cell Count 3.92 X10^6/uL (4.5-5.9); Red Cell Distribution Width 14.8 % (11.6-14.8); White Blood Cell Count 6.2 X10^3/uL (4.5-11.0)
[2024-06-23 19:23] LABS: Alanine Aminotransferase 21 IU/L (<50); Albumin Globulin Ratio 1.4 (1.0-2.8); Alkaline Phosphatase 52 U/L (38-126); Aspartate Aminotransferase 74 IU/L (17-59); BUN Creatinine Ratio 16.8 (6-22); Bilirubin Total 0.5 mg/dL (0.2-1.3); Blood Urea Nitrogen 16 mg/dL (9-20); Calcium 8.7 mg/dL (8.4-10.2); Carbon Dioxide 24 mmol/L (22-32); Chloride 103 mmol/L (98-107); Cholesterol 145 mg/dL (140-199); Estimated Glomerular Filt Rate > 60 mL/min (>60); Globulin 2.9 g/dL (1.7-4.1); Glucose 95 mg/dL (80-110); HDL Cholesterol 81 mg/dL (40-60); HEMOLYSIS < 15 (0-50); LDL Cholesterol Calculated 50 mg/dL (<100); Potassium 4.9 mmol/L (3.4-5.1); Sodium 133 mmol/L (137-145); Total Protein 6.9 g/dL (6.3-8.2); Triglycerides 68 mg/dL (35-150)
[2024-06-23 19:50] LABS: Prostate Specific Antigen Scrn 2.46 ng/mL (0.1-4.0)
== END ==
PROVIDERS: PCP Physician Assistant; Visit Provider Physician Assistant
DX: Z12.5 Encounter for screening for malignant neoplasm of prostate (principal); E87.1 Hypo-osmolality and hyponatremia; D64.9 Anemia, unspecified; Z13.6 Encounter for screening for cardiovascular disorders; Z12.11 Encounter for screening for malignant neoplasm of colon; I25.10 Atherosclerotic heart disease of native coronary artery without angina pectoris
CPT/HCPCS: 80053; 80061; 85025; G0103

== ENCOUNTER → 2024-07-26 13:11 | Outpatient (CLI) | payer BC, SELFPAY ==
[2024-07-26 18:46] LABS: Add Manual Diff / Slide Review NO; Basophils Absolute Auto 100 /uL (0-100); Basophils Percent Auto 1.5 % (0-2); Eosinophils Absolute Auto 100 /uL (0-450); Eosinophils Percent Auto 2.1 % (2-4); Hematocrit 35.1 % (41-53); Hemoglobin 12.5 g/dL (13.5-17.5); Lymphocytes Absolute Auto 1900 /uL (1100-4500); Lymphocytes Percent Auto 34.3 % (25-40); Mean Corpuscular HGB Conc 35.5 % (30-36); Mean Corpuscular Hemoglobin 34.3 PG (26-34); Mean Corpuscular Volume 96.6 fL (80-100); Monocytes Absolute Auto 600 /uL (0-900); Monocytes Percent Auto 11.4 % (3-14); Neutrophils Absolute Auto 2800 /uL (1500-7000); Neutrophils Percent Auto 50.7 % (50-75); Platelet Count 266 X10^3/uL (150-400); Red Blood Cell Count 3.64 X10^6/uL (4.5-5.9); Red Cell Distribution Width 15.3 % (11.6-14.8); White Blood Cell Count 5.5 X10^3/uL (4.5-11.0)
[2024-07-26 18:59] LABS: Alanine Aminotransferase 25 IU/L (<50); Albumin 3.8 g/dL (3.5-5.0); Albumin Globulin Ratio 1.3 (1.0-2.8); Alkaline Phosphatase 47 U/L (38-126); Aspartate Aminotransferase 56 IU/L (17-59); BUN Creatinine Ratio 15.9 (6-22); Blood Urea Nitrogen 14 mg/dL (9-20); Carbon Dioxide 25 mmol/L (22-32); Chloride 101 mmol/L (98-107); Estimated Glomerular Filt Rate > 60 mL/min (>60); Globulin 2.9 g/dL (1.7-4.1); Glucose 86 mg/dL (80-110); HEMOLYSIS < 15 (0-50); Potassium 4.4 mmol/L (3.4-5.1); Sodium 130 mmol/L (137-145); Total Protein 6.7 g/dL (6.3-8.2)
== END ==
PROVIDERS: PCP Physician Assistant; Visit Provider Physician Assistant
DX: D64.9 Anemia, unspecified (principal); E87.1 Hypo-osmolality and hyponatremia
CPT/HCPCS: 80053; 85025